=== PATIENT | female | born 1980 | race Caucasian/White ===

== ENCOUNTER 2017-03-02 12:48 | Emergency (ER) | payer OTHER ==
[~2017-03-02] VITALS: Ht 160 cm; Wt 35.6 kg
[2017-03-02 14:24] VITALS: BP 107/72
== END 2017-03-02 14:24 | disposition left against medical advice (07) ==
LOC: EME 12:48
DX: R60.0 Localized edema (principal); K59.00 Constipation, unspecified; F41.9 Anxiety disorder, unspecified; R45.1 Restlessness and agitation; Z72.0 Tobacco use
CPT/HCPCS: 99281; 99283

== ENCOUNTER 2018-01-01 11:35 | Day surgery (SDC) | payer OTHER ==
[~2018-01-01] VITALS: Ht 160 cm; Wt 34.0 kg
[~2018-01-01 11:35] MED LIST: LINZESS145 MCG PO; MULTIPLE VITAM1 EAC4 PO; PROTONIX40 MG PO
[2018-01-01] MEDS ORDERED: COLACE100 MG PO (12:08)
[2018-01-01 12:18] VITALS: BP 94/59
[2018-01-01 15:42] VITALS: BP 105/63
[2018-01-01 16:40] VITALS: BP 117/65
== END 2018-01-01 17:00 | disposition home or self-care (01) ==
LOC: SDC
DX: K59.09 Other constipation (principal); K62.4 Stenosis of anus and rectum; K21.9 Gastro-esophageal reflux disease without esophagitis; M79.89 Other specified soft tissue disorders; F17.200 Nicotine dependence, unspecified, uncomplicated; Z80.0 Family history of malignant neoplasm of digestive organs
CPT/HCPCS: J0690; J2250; J2405; J3010